=== PATIENT | male | born 1955 | race Caucasian/White ===

== ENCOUNTER 2018-01-12 07:42 | Day surgery (SDC) | payer OTHER ==
[2018-01-12] MEDS ORDERED: Dextrose 5%-Lactated Ringers 1,000 ML IV SCH (08:30)
[2018-01-12] MEDS ORDERED: Glycopyrrolate 0.2 MG/ML 2 ML SDV IVPUSH ONE (08:30)
[2018-01-12] MEDS ORDERED: fentaNYL 100 MCG/2 ML SDV ONE (09:31)
[2018-01-12] MEDS ORDERED: Propofol 200 MG/20 ML SDV ONE (09:31)
[2018-01-12] MEDS ORDERED: Midazolam 1 MG/ML 2 ML SDV ONE (09:31)
[2018-01-12] MEDS ORDERED: Pantoprazole 40 MG Vial IVPUSH ONE (10:46)
[2018-01-12 13:28] VITALS: BP 136/80
--- NOTE | 2018-01-19 11:18 | OR ---
DATE OF PROCEDURE: 01/12/2018 PREOPERATIVE DIAGNOSES: 1. Excessive weight loss associated with epigastric pain. 2. History of rectal bleeding. POSTOPERATIVE DIAGNOSES: 1. Excessive weight loss associated with epigastric pain associated with mild pouch gastritis. 2. Colonoscopy showing excoriated hemorrhoids, likely resulting in intermittent bleeding. OPERATIVE PROCEDURES: 1. Upper GI endoscopy with biopsies of gastric pouch for CLOtest (51340). 2. Flexible colonoscopy (97780). ANESTHESIA: IV sedation. INDICATION FOR PROCEDURE: The patient is status post Rama-en-Y gastric bypass and presents with some ongoing weight loss that appears to be approaching an excessive level. The patient does complain of some epigastric pain. He has not been on any antisecretory medications. The plan is to proceed with upper GI endoscopy for evaluation of this issue. The patient also has history of some intermittent bright red rectal bleeding, and the plan is to proceed with flexible colonoscopy with biopsies and/or polypectomy as indicated. Potential risks of the procedure including bleeding and perforation were discussed, and the patient wishes to proceed. DETAILS OF PROCEDURE: The patient was taken to the operating room and after being placed in the left lateral decubitus position, IV sedation was administered. The upper GI endoscope was passed orally through the length of the esophagus and into the gastric pouch and from there through the gastrojejunostomy, roughly 20 cm into the Rama limb. Findings included normal hypopharynx, larynx, upper esophageal sphincter, and esophageal body. At the EG junction, no significant inflammation was noted. There were some mild redness and edema of the gastric pouch. There was no significant inflammation at the gastrojejunostomy or adjacent to it, i.e. no marginal ulcers were present; and the gastrojejunostomy was widely patent, i.e. no stricture was present. The remaining portion of the Rama limb was unremarkable. At this point, biopsies were obtained from the gastric pouch and sent for CLOtest for H. pylori. Minimal bleeding from the biopsy sites was seen, and the gastroscope was then removed. Attention was then taken to the colonoscopy. Initial digital rectal exam was performed and was unremarkable. Colonoscope was passed into the rectum, which showed an array of fairly excoriated hemorrhoids. There was no blood or bleeding seen at this time, but he certainly would be a candidate for some intermittent bleeding episodes. The scope was then eventually passed to the cecum. The prep was fairly good with there only being a small amount of liquid stool present to that level. There were no diverticula, no areas of colitis, and no polyps or other signs of neoplasia. The scope was then withdrawn. The above findings reconfirmed. The plan, at this point, will be to begin the patient on Protonix. He will be given 40 mg IV in the recovery room and then 40 mg daily, #30. In a 62-year-old with the upper abdominal pain not being necessarily well explained by the degree of gastritis, we will obtain a CT scan of the abdomen and pelvis to make sure there is not some additional pathology going on in those areas. After the CT scan, we will see the patient back in the clinic. If he is continuing to have some bleeding problems at that time, from a rectal bleeding standpoint, we could consider hemorrhoid banding. We will also have the patient see Dietary today to look at possible dietary issues that might be contributing to the excess weight loss. Iván Robison MD /[id number]
== END 2018-01-12 13:00 | disposition home or self-care (01) ==
LOC: JP.SDS 07:42
PROVIDERS: ATTEND Surgery
DX: K29.60 Other gastritis without bleeding (principal); R63.4 Abnormal weight loss; K64.8 Other hemorrhoids; I10 Essential (primary) hypertension; G47.33 Obstructive sleep apnea (adult) (pediatric); Z98.84 Bariatric surgery status
CPT/HCPCS: 43239; 45378; 87081; C9113; J2250; J2704; J3010; J7042; J3490